=== PATIENT | male | born 1945 | race Caucasian/White ===

== ENCOUNTER 2018-11-24 19:58 | Inpatient (IN) ==
--- NOTE | 2018-11-25 01:50 | Internal Med History&Physical ---
<Cameron Ho - Last Filed: 11/25/18 01:41> Date of Encounter: 11/25/18 Time of Encounter: 01:42 Internal Medicine - H&P: HPI Chief complaint: Presyncopal episode Admitted From: Hospital to Hospital Transfer History of present illness: Mr. Ram is a 73 year old male with a past medical history of liver/colon cancer status post partial colectomy, on June 152018 quadruple bypass CABG approximately 25 years ago, presenting to the ED from an outside hospital after paracentesis of 3 L of ascitic fluid off the patient's abdomen. After undergoing this procedure the patient was noted to be "staring off into space" and had decreased responsiveness. Patient states that he felt weak during that event with generalized abdominal pain and mild headache however he feels that he has progressed back to his baseline at this time. Patient's home medications include amlodipine, aspirin, atorvastatin, carvedilol, glipizide, isosorbide mononitrate, furosemide, losartan, Procrit, Ranexa ranitidine. Patient not currently on any anticoagulation other than aspirin. At outside facility patient was noted to be hypotensive with a blood pressure of 98/59 bradycardic with a pulse of 51 respiratory 18 with O2 sats 92% on room air, patient's laboratory values showed unremarkable ammonia and lactic acid, CBC showed mildly elevated white count 11.37 comprehensive metabolic panel yielded director bilirubin increased at 3.5, sodium is low at 123, hyperkalemia 5.3, hypocalcemia 7.7, AST/ALT at 91/41 alkaline phosphatase 268 lipase at 1253 PT/INR at 18.4/1.6 respectively. Chest x-ray shows possibly developing airspace abnormality in the right lung base CT scan abdomen and pelvis shows an eschar with large ascitic fluid however there was no other acute pathology identified. Upon my initial evaluation patient was sitting upright in hospital but he was awake alert oriented engaged conversation answering questions appropriately there appeared to be no acute lateralizing signs, the patient was in no acute distress. The patient was noticeably jaundiced with scleral icterus, he is noted to be extremely hard of hearing but is otherwise able to take part in significant review systems and history of present illness questioning. Patient's cardiopulmonary auscultation was unremarkable, his abdomen was distended but was otherwise soft and nontender. His large abdominal dressing to the midline of the patient's abdomen it is clean, wall dry, well dressed I do not see any or erythema or exudate. Peripheral pulses are strong and palpable, there is 3+ pitting edema noted in the patient's left lower extremity with 1+ pitting edema in the right lower extremity which patient states is his baseline. Assessment and plan: Presyncopal episode: Repeat labs to include CBC, BMP, coags, hepatic panel, lipase Patient states he is back to baseline is alert and oriented in no acute distress Replace electrolytes as required DNR status: I spoke with the patient and at bedside who state that they would like to remain full code at this time, however the patient is adamant that he would not approve long-term use of life-sustaining measures. Diabetes mellitus: Low-dose sliding corrective insulin regimen DVT prophylaxis: EPCDs Past Med Surg Social Fam HX - Past Medical History Medical history: cancer, diabetes, GERD, hyperlipidemia, hypertension, liver disease, malignancy Additional medical history: colon CA w/ liver mets, Psychiatric history: no psych history - Past Surgical History Surgical History: cancer surgery Additional surgical history: paracentesis 11/24/18. biopsy to medial abdomen 11/23/18 - Social History Smoking Status: Former smoker Smokeless Tobacco Status: No Alcohol use: none Drug use: none - Family History Father Living Status: Hx Family Cancer: Yes (Lung CA) Internal Medicine - H&P: Meds Aspirin [Lo-Dose Aspirin EC] 81 mg PO DAILY 11/25/18 [History] Atorvastatin Calcium [Lipitor] 80 mg PO HS 11/25/18 [History] Calcium Acetate [Phos-LO] 667 mg PO TIDWM 11/25/18 [History] Carboxymethylcellulose Sodium [Sterile Lubricant] 15 ml OP DAILY PRN 11/25/18 [History] Carvedilol 12.5 mg PO BID 11/25/18 [History] Cholecalciferol (D-3) [Vitamin D] 1,000 units PO DAILY 11/25/18 [History] Epoetin Nilesh [Procrit] 10,000 unit SQ QMWF 11/25/18 [History] Ferrous Sulfate [Iron] 325 mg PO TIDWM 11/25/18 [History] Folic Acid 1 mg PO DAILY 11/25/18 [History] Furosemide [Lasix] 40 mg PO DAILY 11/25/18 [History] GlipiZIDE [Glucotrol] 10 mg PO BIDWM 11/25/18 [History] Isosorbide MONOnitrate (24 HR) [Imdur] 60 mg PO DAILY 11/25/18 [History] Losartan Potassium [Cozaar] 50 mg PO DAILY 11/25/18 [History] Ranitidine HCl [Heartburn Relief] 150 mg PO BID 11/25/18 [History] Ranolazine [Ranexa] 500 mg PO BID 11/25/18 [History] amLODIPine [Norvasc] 5 mg PO DAILY 11/25/18 [History] Allergy/AdvReac Type Severity Reaction Status Date / Time No Known Allergies Allergy Verified 11/25/18 00:47 All Systems PM: A 10-system review of systems was performed and is negative for pertinent findings except as documented above in the HPI. - Constitutional Constitutional: fatigue, malaise, weakness - Cardiovascular Cardiovascular ROS IM: no chest pain - Respiratory Respiratory: no dyspnea - Gastrointestinal Gastrointestinal: no abdominal pain, no nausea, no vomiting - Integumentary Integumentary IM: jaundice - Neurological Neurological ROS: weakness, no confusion, no dizziness, no headache(s), no loss of vision, no memory loss - Constitutional Vitals: Temp Pulse Resp BP Pulse Ox 97.4 F L 53 20 99/53 96 11/24/18 22:58 11/25/18 00:09 11/24/18 22:58 11/24/18 22:58 11/24/18 22:58 General appearance: Present: A&O X 3, pleasant, no acute distress, answers questions appropriately Exam: As per history of present illness - Head Head exam: Present: atraumatic, normal inspection - Eye Eye exam: Present: EOMI, PERRL, scleral icterus. Absent: conjunctival injection, nystagmus - Respiratory Respiratory exam: Present: CTAB - Cardiovascular Cardiovascular exam: Present: RRR, +S1, +S2. Absent: diastolic murmur, gallop, JVD, rubs, +S3, +S4, systolic murmur - GI/Abdominal GI/Abdominal exam: Present: distended, soft, no peritoneal signs. Absent: firm, rigid, tenderness - Extremities Exam Extremities exam: Present: pedal edema, warm, radial pulses palpable and symmetrical. Absent: tenderness - Time Spent With Patient Total time spent is greater than 50% in coordination of care (as documented) at patient's floor/unit and/or counseling patient: <Chuck Tran - Last Filed: 11/25/18 08:13> Date of Encounter: 11/25/18 Internal Medicine - H&P: HPI History of present illness: Mr. Ram is a 73 year old male All Systems PM: A 10-system review of systems was performed and is negative for pertinent findings except as documented above in the HPI. - Constitutional Vitals: Temp Pulse Resp BP Pulse Ox 97.6 F 53 16 93/52 95 11/25/18 03:37 11/25/18 03:37 11/25/18 04:01 11/25/18 03:37 11/25/18 04:01 Internal Med - H&P Results - Labs CBC & Chem 7: 11/25/18 02:44 11/25/18 02:44 Labs: Short CBC 11/25/18 Range/Units 02:44 WBC 10.1 (4.3-11.1) K/mcL Hgb 8.3 L (12.9-16.9) g/dL Hct 24.6 L (37.5-50.1) % Plt Count 179 (140-400) K/mcL Neutrophils # 9.1 H (1.6-8.9) K/mcL BMP 11/25/18 02:44 Sodium 122 L Potassium 5.5 H Chloride 95 L Carbon Dioxide 15 L BUN 82 H Creatinine 7.79 H Glucose 228 H Calcium 6.8 L Cardiac Enzymes 11/25/18 Range/Units 02:44 Troponin I 0.03 (< 0.04) ng/mL Liver Function 11/25/18 Range/Units 02:44 Total Bilirubin 4.1 H (0.3-1.0) mg/dL Direct Bilirubin 2.9 H (0.0-0.2) mg/dL AST 61 H (13-39) Units/L ALT 35 (7-52) Units/L Alkaline Phosphatase 236 H (34-104) Units/L Albumin 2.0 L (3.5-5.7) g/dL - Impressions ITS Impressions Head CT 11/25/18 06:30 IMPRESSION: No acute intracranial abnormality. Mild focal left frontal lobe encephalomalacia. Mild chronic white matter microvascular ischemic disease. D/ / Gaurav Ridley / Gaurav Ridley Interpreting Provider: Gaurav Ridley - Time Spent With Patient Total time spent is greater than 50% in coordination of care (as documented) at patient's floor/unit and/or counseling patient: - Attending Attestation I saw and evaluated the patient. I reviewed the residents note, performed my own physical examination and agree with findings and plan as documented in the residents note. Patient seen and examined on 11/25/18 at 530am. Patient presented from [place], [place] after having paracentesis performed. He has decreased responsiveness but did improve. He was transferred to [place] due to worsening renal funtion, with an elevated creatinine of nearly 8. Patient states he does have a history of CKD stage III. Patient also has elevated potassium of 5.3 at previous hospital and a sodium of 123. On repeat potassium was 5.5, and sodium was 122. Creatinine was 7.79. Will continue to monitor potassium and sodium. Giving 15mg albuterol and calcium gluconate. will hold off on IV fluids despite worsening renal function for now until nephrology can evaluate. Suspect that due to ascites possibly caused renal injury as well. Patient also has bradycardia at baseline, diabetes on insulin. He also has a history of colon cancer with metastasis. Hernandez catheter placed for monitoring I's&O's. Lower extremity edema at baseline. - General appearance: Present: cooperative, A&O X 3, pleasant, no acute distress, answers questions appropriately Exam: - Head Head exam: Present: normal inspection - Eye Eye exam: Present: EOMI, normal appearance - Respiratory Respiratory exam: Present: CTAB. Absent: rales, respiratory distress, rhonchi, wheezes - Cardiovascular Cardiovascular exam: Present: RRR. Absent: diastolic murmur, systolic murmur - GI/Abdominal GI/Abdominal exam: Present: normal bowel sounds, soft. Distended. Wound dressings applied, clean and dry. - Extremities Exam Extremities exam: Present: warm, radial pulses palpable and symmetrical. Pedal edema left worse than right. Absent: calf tenderness - Neurological Exam Neurological exam: Present: no focal deficits, strengths equal and symetr throughout. Absent: motor sensory deficit, facial droop, speech deficit - Skin Skin exam: Present: dry, normal color, warm
[2018-11-25] MEDS ORDERED: Dextrose Gel 15 GM/37.5 ML TUBE PO PRN ×2 (02:29)
[2018-11-25] MEDS ORDERED: *HR* Dextrose 50 % in Water (Syg) 50 ML SYRINGE IVP PRN (02:29)
[2018-11-25] MEDS ORDERED: D5% in Water 1,000 ML IVC PRN (02:29)
[2018-11-25 03:10] LABS: Eosinophils % 0.2 %; Hematocrit 24.6 % (37.5-50.1); Hemoglobin 8.3 g/dL (12.9-16.9); Immature Granulocytes % 0.7 % (0-4); Lymphocytes # 0.2 K/mcL (0.6-4.6); Lymphocytes % 1.8 %; Mean Corpuscular HGB Conc 33.7 g/dL (31.6-35.5); Mean Corpuscular Hemoglobin 27.9 pg (28.0-33.3); Mean Corpuscular Volume 82.6 fL (83.0-100.0); Mean Platelet Volume 12.3 fL (9.4-12.4); Monocytes # 0.8 K/mcL (0.0-1.3); Monocytes % 7.6 %; Neutrophils # 9.1 K/mcL (1.6-8.9); Platelet Count 179 K/mcL (140-400); Red Blood Count 2.98 M/mcL (4.19-5.50); Red Cell Distribution Width 21.8 % (11.5-14.5); Segmented Neutrophils % 89.7 %; White Blood Count 10.1 K/mcL (4.3-11.1)
[2018-11-25 03:36] LABS: Albumin/Globulin Ratio 0.6 (1.1-2.2); Bilirubin,Direct 2.9 mg/dL (0.0-0.2); Bilirubin,Indirect 1.2 mg/dL (0.0-1.2); Bilirubin,Total 4.1 mg/dL (0.3-1.0); Calcium 6.8 mg/dL (8.6-10.3); Globulin 3.6 g/dL (2.4-3.5); Potassium 5.5 mEq/L (3.5-5.1); Total Protein 5.6 g/dL (6.4-8.9)
[2018-11-25 03:38] LABS: Anisocytosis 2+ (Not Present); Hypochromasia Present (Not Present); Platelet Estimate Normal (Normal)
[2018-11-25] MEDS ORDERED: Albuterol 2.5 MG/3 ML NEBULIZER IH ONE (03:39)
[2018-11-25] MEDS ORDERED: Calcium Gluconate 2,000 MG in 0.9 % Sodium Chloride 100 ML IVPB ONE (03:40)
[2018-11-25 03:50] LABS: INR 1.4; Prothrombin Time 15.9 Seconds (9.4-12.1)
[2018-11-25 03:53] LABS: Activated Partial Thrombo Time 35.1 Seconds (26.0-36.0)
[2018-11-25 04:32] LABS: Troponin I 0.03 ng/mL (< 0.04)
[2018-11-25 04:34] LABS: Magnesium 2.6 mg/dL (1.6-2.6); Phosphorous 6.8 mg/dL (2.7-4.5)
[2018-11-25] MEDS: Insulin LISPRO 300 UNITS/3 ML VIAL SQ SCH ×3 (05:21→18:32)
[2018-11-25] MEDS: Azithromycin 500 MG in 0.9 % Sodium Chloride 250 ML IVPB SCH (08:37)
[2018-11-25] MEDS: cefTRIAXone 1,000 MG in Water for inj. (sterile) 10 ML IVP SCH (08:37)
[2018-11-25 09:27] LABS: Calcium 7.1 mg/dL (8.6-10.3); Potassium 5.7 mEq/L (3.5-5.1)
[2018-11-25] MEDS ORDERED: 0.9 % Sodium Chloride 1,000 ML IVC SCH (10:00)
[2018-11-25] MEDS ORDERED: 0.9 % Sodium Chloride 1,000 ML ONE (10:26)
[2018-11-25] MEDS: Albumin 25% 25gram/100mL 25 GM/100 ML IV.SOLN IVC SCH ×2 (11:13→13:00)
--- NOTE | 2018-11-25 14:23 | Nephrology Consult Note ---
<Damaso Gilbert - Last Filed: 11/25/18 17:46> Date of Encounter: 11/25/18 Time of Encounter: 10:50 (guessed) Assessment and Plan (1) CKD (chronic kidney disease) Status: Acute Qualifiers: Qualified Code(s): N18.9 - Chronic kidney disease, unspecified (2) LINH (acute kidney injury) Status: Acute (3) Hyponatremia Status: Acute (4) Hyperkalemia Status: Acute (5) Metabolic acidosis Status: Acute (6) Hyperphosphatemia Status: Acute (7) Altered mental status Status: Acute Qualifiers: Qualified Code(s): R41.82 - Altered mental status, unspecified History of Present Illness - History of Present Illness Some elements from chart review: Mr. Kurt Ram is a 73-year-old male who presented to the [facility] ED on 11/25 from a hospital in [place] after altered mental status was noted by the following 3 L paracentesis of ascitic fluid. PMH: Colon cancer status post colectomy on 06/15/2018 complicated by reported infection toward the end of that month, coronary artery bypass grafts 4 when he was 49, heart failure with preserved ejection fraction echo 01/13/18 with LVEF 55-60%, suspicious lesions of liver, CKD Outside facility Initial vitals significant for: Blood pressure 98/59. Heart rate 51. Initial labs significant for: Sodium low at 123. Potassium 5.3. [facility] Initial vitals significant for: Heart rate 53 within the first several hours. Respiratory rate 20. Blood pressure 99/53. Nasal cannula use Initial labs significant for: Creatinine 7.79. BUN 82. Sodium 122. Potassium 5.5. Serum carbon dioxide 16. Estimated GFR 7. CT head 11/25 read as no acute intracranial abnormality, mild chronic white matter microvascular ischemic disease, mild focal left frontal lobe encephalomalacia. Nephrology was consulted for LINH Interview with and patient: Unknown baseline creatinine. Reports phonetic name of anodic treater as Dr. Fabienne dickson" from [place]. Has followed him for several years. Possible cause of CKD diabetes and metformin. No dialysis, transplants, bladder surgeries. Denies Advil or ibuprofen use or any significant pain medication. No significant licorice intake. reports decreased oral intake for 2 days prior to paracentesis secondary to patient feeling bloated. felt that patient was dehydrated before the procedure and even worse afterwards. Past Med Surg Social Fam HX - Past Medical History Medical history: cancer, diabetes, GERD, hyperlipidemia, hypertension, liver disease, malignancy Additional medical history: colon CA w/ liver mets, Psychiatric history: no psych history - Past Surgical History Surgical History: cancer surgery Additional surgical history: paracentesis 11/24/18. biopsy to medial abdomen - Social History Smoking Status: Former smoker Smokeless Tobacco Status: No Alcohol use: none Drug use: none - Family History Father Living Status: Hx Family Cancer: Yes (Lung CA) Medications and Allergies Aspirin [Lo-Dose Aspirin EC] 81 mg PO DAILY 11/25/18 [History] Atorvastatin Calcium [Lipitor] 80 mg PO HS 11/25/18 [History] Calcium Acetate [Phos-LO] 667 mg PO TIDWM 11/25/18 [History] Carboxymethylcellulose Sodium [Sterile Lubricant] 15 ml OP DAILY PRN 11/25/18 [History] Carvedilol 12.5 mg PO BID 11/25/18 [History] Cholecalciferol (D-3) [Vitamin D] 1,000 units PO DAILY 11/25/18 [History] Epoetin Nilesh [Procrit] 10,000 unit SQ QMWF 11/25/18 [History] Ferrous Sulfate [Iron] 325 mg PO TIDWM 11/25/18 [History] Folic Acid 1 mg PO DAILY 11/25/18 [History] Furosemide [Lasix] 40 mg PO DAILY 11/25/18 [History] Isosorbide MONOnitrate (24 HR) [Imdur] 90 mg PO DAILY 11/25/18 [History] Losartan Potassium 25 mg PO DAILY 11/25/18 [History] Ranitidine HCl [Heartburn Relief] 150 mg PO BID 11/25/18 [History] Ranolazine [Ranexa] 500 mg PO BID 11/25/18 [History] amLODIPine [Norvasc] 5 mg PO DAILY 11/25/18 [History] glipiZIDE [Glipizide] 20 mg PO BID 11/25/18 [History] Allergy/AdvReac Type Severity Reaction Status Date / Time No Known Allergies Allergy Verified 11/25/18 09:57 Review of Systems All Systems review (narrative): From Denies: Diarrhea, hematochezia, hematuria *some information auto-populated into this note* Exam - Vital Signs Vital signs: Initial Vital Signs Temp Pulse Resp BP Pulse Ox 97.4 F L 61 20 99/53 96 11/24/18 22:58 11/24/18 22:58 11/24/18 22:58 11/24/18 22:58 11/24/18 22:58 Vital Signs - Last 8 Hours Temp Pulse Resp BP Pulse Ox 11/25/18 11:37 97.6 F 53 18 97/56 97 11/25/18 08:37 54 11/25/18 08:04 97.5 F L 54 18 102/53 95 Intake and Output 11/24/18 11/25/18 11/25/18 23:59 07:59 15:59 Intake Total 460 / 460 Output Total 25 / 25 Balance -25 / -25 460 / 460 Intake: IV Fluids 100 / 100 Flexbumin 25 gm In 100 ml @ 60 100 / 100 mls/hr IVC .[id number] [facility] Rx#: [id number] Oral 360 / 360 Output: Catheter Other: Meal NPO Percent of Meal Consumed 0% Weight 104.1 kg Blood Glucose* 183 Additional exam: objective PE Gen.: Elderly male. Reclining in bed Skin: Turgor exam not reliable. Eyes: Moist sclera Cardiac: Only one heart sound heard. Likely bradycardic Respiratory: Dry basilar crackles. GI: Distended appearance. Bandaged over midline and left quadrant. : Dark appearance of urine in Hernandez tube Extremities: Capillary refill less than 2 seconds bilateral upper extremities. Pitting edema bilaterally that seem to be or so dependent on the left than on the right. to around proximal tibia on the right. Neuro: Alert and oriented to person and place only. Thought the year was "02" and could not answer what month it is. Babinski complicated by ticklishness A/P #LINH Presumed Records from [facility] and his anodic treater pending. Consider secondary to renal hypoperfusion -U/A pending -urine urea pending -urine creatinine pending -urine Na pending -urine eosinophils pending -CPK pending -uric acid pending -continue current 0.9% sodium chloride -continue albumin -retroperitoneal U/S pending #CKD Unknown baseline. Records pending -Avoid nephrotoxic medication -Renal diet -Strict I's and O's -Daily weights #hyponatremia serum calculated osmolality WNL suggesting other solute causing transcellular shift of free water. -Corrected for glucose is 125 -Serum osmolality pending -continue 0.9% sodium chloride #Hyperkalemia Consider secondary to acidosis as well as suspected LINH Initial readings 5.5> 5.7 -Calcium gluconate in the setting of sinus bradycardia and CKD #High anion gap metabolic acidosis Consider secondary to LINH gap 13 as of 11/25 -plan to continue to monitor and resolve LINH #Hyperphosphatemia consider secondary to LINH -monitor pending clinical course #altered mental status -Per primary Results - Lab Results 11/25/18 02:44 11/25/18 08:39 Most recent lab results 11/25/18 11/25/18 02:44 08:39 Calcium 6.8 L 7.1 L Phosphorus 6.8 H Magnesium 2.6 Consult Discharge Plan - Plan [facility]Primary Care Provider[facility] - <Donell Enrique - Last Filed: 12/06/18 22:55> Date of Encounter: 11/25/18 Exam - Vital Signs Vital signs: Initial Vital Signs Temp Pulse Resp BP Pulse Ox 97.4 F L 61 20 99/53 96 11/24/18 22:58 11/24/18 22:58 11/24/18 22:58 11/24/18 22:58 11/24/18 22:58 Results - Lab Results 11/26/18 04:29 11/26/18 04:29 - Attending Attestation I examined this patient and my medical decision-making was reviewed with the Resident Physician. I agree with the documented findings, disposition and treatment plan as described except to the extent set forth below. In brief; 73 y o male with PMH of colon cancer s/p colectomy in june, now with mets to the liver requiring paracentesis earlier today at a different hospital and developing hypotension with transfer to [place]. Renal consulted for elevated SCr at 7.79, baseline unclear but does have a history of CKD, follows with Dr Holbrook. Potassium noted at 5.5. On exam: chronic ill appearing, fatigued, dryMM, lungs with decreased BS bases, Heart S1S2, Abd softly distended and mildly tender and no LE edema and Neuro AAOx3. LINH in the setting of metatastic colon cancer. Agree witg IVF for odilia. No acute inidcation for [employer] today but discussed goals of care with family who plan to discuss amongst themselves later. Will initiate LINH workup in the meantime and obtain records showing baseline from outside physicians.
--- NOTE | 2018-11-25 15:57 | Oncology Inp Consult Note ---
<Tip Kwok S - Last Filed: 11/25/18 20:49> Date of Encounter: 11/25/18 - Data of Consult Requesting Physician: Brent Patel MD Primary Care Provider: PCP [facility] Medications and Allergies Aspirin [Lo-Dose Aspirin EC] 81 mg PO DAILY 11/25/18 [History] Atorvastatin Calcium [Lipitor] 80 mg PO HS 11/25/18 [History] Calcium Acetate [Phos-LO] 667 mg PO TIDWM 11/25/18 [History] Carboxymethylcellulose Sodium [Sterile Lubricant] 15 ml OP DAILY PRN 11/25/18 [History] Carvedilol 12.5 mg PO BID 11/25/18 [History] Cholecalciferol (D-3) [Vitamin D] 1,000 units PO DAILY 11/25/18 [History] Epoetin Nilesh [Procrit] 10,000 unit SQ QMWF 11/25/18 [History] Ferrous Sulfate [Iron] 325 mg PO TIDWM 11/25/18 [History] Folic Acid 1 mg PO DAILY 11/25/18 [History] Furosemide [Lasix] 40 mg PO DAILY 11/25/18 [History] Isosorbide MONOnitrate (24 HR) [Imdur] 90 mg PO DAILY 11/25/18 [History] Losartan Potassium 25 mg PO DAILY 11/25/18 [History] Ranitidine HCl [Heartburn Relief] 150 mg PO BID 11/25/18 [History] Ranolazine [Ranexa] 500 mg PO BID 11/25/18 [History] amLODIPine [Norvasc] 5 mg PO DAILY 11/25/18 [History] glipiZIDE [Glipizide] 20 mg PO BID 11/25/18 [History] Allergy/AdvReac Type Severity Reaction Status Date / Time No Known Allergies Allergy Verified 11/25/18 09:57 Consult Discharge Plan - Plan [facility]errals: [facility] [Primary Care Provider] - Inpatient Charges Provider: Dr. Collins Kwok Consult - Inpatient Medicare Only: [id number] - Attending Attestation I examined this patient and my medical decision-making was reviewed with the Advanced Practice Nurse. I agree with the documented findings, disposition and treatment plan as described except to the extent set forth below. Mr. Ram has a somewhat convoluted recent oncologic history. He was found to have colon cancer in 06/2018 and is sp resection. Chemotherapy was recommended against secondary to comorbidities. He has been managed by Dr. Kate. He has now developed worsening renal function and HD has been discussed. Imaging has confirmed metastatic colon cancer involving the liver. He has evidence of liver dysfunction, but my personal review, this does not appear related to liver tumor burden. I cannot ascertain obstruction involving left liver. His PS is poor with ECOG 3 at current, he has liver dysfunction, ESRD in need of HD and severe CHF. This was discussed with the patient and his . It is highly unlikely he will be able to obtain the strength and ability to tolerate chemotherapy in light of the above; chemotherapy will be difficult to administer and will likely negatively impact his QoL. He wants to be comfortable and does not want to suffer. After this discussion, he has elected against HD and further treatment of his cancer. I think this is best as well. We discussed and dying, expectations moving forward and answered questions. We have consulted palliative care to help with this transition. <Matthew Teixeira Jr - Last Filed: 11/26/18 09:03> Date of Encounter: 11/26/18 Time of Encounter: 15:44 Assessment and Plan (1) Metastatic colon cancer to liver Status: Acute Assessment and plan: This is a very pleasant 73 year old male with metastatic colon cancer. He was diagnosed after April 2018 colonoscopy for ascending colon mass. On 06/15/18, he had partial colectomy with Dr Josué Boucher at [facility]. His medical oncologist that travels from [facility] in [place] to [place] is Dr Brian Kate He has known history of CKD III, sees his professional development instructor, Dr. Osman Holbrook at [facility] in [place], [place]. Due to his worsening chronic kidney disease, his opinion was not to take chemotherapy and risk of further kidney damage. Patient also had a compromised ejection fraction and heart function, and his dress designer also recommended against chemotherapy. Patient had a paracentesis and biopsy on November 16 of a nodule was abdominal wall near his incision. It was thought to be metastatic colon cancer. Patient again had a paracentesis at [facility] in [place] yesterday. At that time they got more than 3 L again off his abdomen. He then went into a shock like state and altered mental status, was transferred our facility for further treatment and evaluation. MRI abdomen shows ascites and innumerable masses of metastatic lesions in his liver. He had one "nodule" he knew about a few weeks ago when he was offered chemo, but, again kidney and heart function is compromised. Recommnedations: 1. Patient with advanced metastatic colon caner to liver. Due to extent of his disease in liver with ascites, even with optimal conditions and god health, chemo could give him up to 1-2 years survival. 2. Patient has would most likely need dialysis, and with him already weak, he would have to wait 8-12 weeks to start chemo based on renal and heart function. In addition he is in liver failure. Any chemo agent would be metabolized in liver or kidneys and make him sicker. 3. Patient decided against any dialysis or chemotherapy. They have expressed him to be kept comfortable and go home with hospice care. We had a long discussion about the end of life process. 4. We will consult palliative care for code status change and hospice discussion for discharge (2) CKD (chronic kidney disease) stage 4, GFR 15-29 ml/min Status: Acute (3) Palliative care encounter Status: Acute - Data of Consult Patient: new to practice Consult date: 11/25/18 Requesting Physician: Brent Patel MD Primary Care Provider: [facility]CP [facility] - Consult Narrative Reason for consult: Metastatic colon cancer History of present illness: The patient is a very pleasant 73 year male transferred from [facility] after paracentesis yesterday that resulted in 3 L of fluid removed from the abdomen. The following data is from his , Bella. Records from outside facilities is pending arrival. Patient has a known history of colon cancer. His colon cancer history began in April [address] Chato Bullock at [facility] found a mass in his lower ascending colon during colonoscopy that was malignant. On 06/15/2018 when he had a partial ascending colectomy by Dr. Josué Boucher with the [facility] in [facility]. At that time the patient's said he was curative and was not offered chemo or radiation. His medical oncologist that travels from [facility] in [place] to [place] is Dr Brian Kate A few weeks later, patient had trouble with wound healing of his colectomy due to long-standing diabetes. Patient was seen by wound care in the [place] area to help secondary healing of his abdominal incision. At that time he had further diagnostic testing that showed a possible nodule in his liver and small intestine. He was seen by his professional development instructor, Dr. Osman Holbrook at [facility] in [place], [place]. Due to his worsening chronic kidney disease, his opinion was not to take chemotherapy and risk of further kidney damage. Patient also had a ejection fraction of 30%, and his dress designer also recommended against chemotherapy. Patient had a paracentesis and biopsy on November 16 of a nodule was abdominal wall near his incision. It was thought to be metastatic colon cancer. Patient again had a paracentesis at [facility] in [place] yesterday. At that time they got more than 3 L again off his abdomen. He then went into a shock like state and altered mental status, was transferred our facility for further treatment and evaluation. Past Med Surg Social Fam HX - Past Medical History Medical history: cancer, diabetes, GERD, hyperlipidemia, hypertension, liver disease, malignancy Additional medical history: colon CA w/ liver mets, Psychiatric history: no psych history - Past Surgical History Surgical History: cancer surgery Additional surgical history: paracentesis 11/24/18. biopsy to medial abdomen 11/23/18 - Social History Smoking Status: Former smoker Smokeless Tobacco Status: No Alcohol use: none Drug use: none - Family History Father Living Status: Hx Family Cancer: Yes (Lung CA) Constitutional: Present: fatigue Gastrointestinal: Present: abdominal pain Oncology - Exam - Constitutional General appearance: cooperative, no acute distress - Head Head exam: Present: normal inspection, normocephalic - Eye Eye exam: Present: PERRL, scleral icterus - ENT ENT exam: Present: mucous membranes dry - Neck Neck exam: Present: full ROM - Respiratory Respiratory exam: Present: decreased breath sounds - Cardiovascular Cardiovascular exam: Present: RRR - Extremities Exam Extremities exam: Present: full ROM, joint swelling, pedal edema - Neurological Exam Neurological exam: Present: alert, oriented X3, no focal deficits - Psychiatric Psychiatric exam: Present: normal affect, normal mood - Skin Skin exam: Present: dry, intact Oncology Inpatient Results Labs: Laboratory Last Values WBC 10.1 K/mcL (4.3-11.1) 11/25/18 02:44 RBC 2.98 M/mcL (4.19-5.50) L 11/25/18 02:44 Hgb 8.3 g/dL (12.9-16.9) L 11/25/18 02:44 Hct 24.6 % (37.5-50.1) L 11/25/18 02:44 MCV 82.6 fL (83.0-100.0) L 11/25/18 02:44 MCH 27.9 pg (28.0-33.3) L 11/25/18 02:44 MCHC 33.7 g/dL (31.6-35.5) 11/25/18 02:44 RDW 21.8 % (11.5-14.5) H 11/25/18 02:44 Plt Count 179 K/mcL (140-400) 11/25/18 02:44 MPV 12.3 fL (9.4-12.4) 11/25/18 02:44 Immature Gran % 0.7 % (0-4) 11/25/18 02:44 Seg Neutrophils % 89.7 % 11/25/18 02:44 Lymphocytes % 1.8 % 11/25/18 02:44 Monocytes % 7.6 % 11/25/18 02:44 Eosinophils % 0.2 % 11/25/18 02:44 Basophils % 0.0 % 11/25/18 02:44 Neutrophils # 9.1 K/mcL (1.6-8.9) H 11/25/18 02:44 Lymphocytes # 0.2 K/mcL (0.6-4.6) L 11/25/18 02:44 Monocytes # 0.8 K/mcL (0.0-1.3) 11/25/18 02:44 Eosinophils # 0.0 K/mcL (0.0-0.6) 11/25/18 02:44 Basophils # 0.0 K/mcL (0.0-0.2) 11/25/18 02:44 Platelet Estimate Normal (Normal) 11/25/18 02:44 Hypochromasia Present (Not Present) A 11/25/18 02:44 Anisocytosis 2+ (Not Present) A 11/25/18 02:44 PT 15.9 Seconds (9.4-12.1) H 11/25/18 02:44 INR 1.4 11/25/18 02:44 APTT 35.1 Seconds (26.0-36.0) 11/25/18 02:44 Sodium 124 mEq/L (136-145) L 11/25/18 08:39 Potassium 5.7 mEq/L (3.5-5.1) H 11/25/18 08:39 Chloride 95 mEq/L (98-107) L 11/25/18 08:39 Carbon Dioxide 16 mEq/L (23-29) L 11/25/18 08:39 BUN 85 mg/dL (8-23) H 11/25/18 08:39 Creatinine 8.02 mg/dL (0.70-1.30) H 11/25/18 08:39 Est GFR ( Amer) 8 (> 60) L 11/25/18 08:39 Est GFR (Non-Af Amer) 7 (> 60) L 11/25/18 08:39 BUN/Creatinine Ratio 11 (6-26) 11/25/18 08:39 Glucose 161 mg/dL (70-105) H 11/25/18 08:39 POC Glucose 183 mg/dL (70-99) H 11/25/18 11:40 Calculated Osmolality 287 (280-300) 11/25/18 08:39 Lactic Acid 1.3 mmol/L (0.5-2.2) 11/25/18 02:44 Calcium 7.1 mg/dL (8.6-10.3) L 11/25/18 08:39 Phosphorus 6.8 mg/dL (2.7-4.5) H 11/25/18 02:44 Magnesium 2.6 mg/dL (1.6-2.6) 11/25/18 02:44 Total Bilirubin 4.1 mg/dL (0.3-1.0) H 11/25/18 02:44 Direct Bilirubin 2.9 mg/dL (0.0-0.2) H 11/25/18 02:44 Indirect Bilirubin 1.2 mg/dL (0.0-1.2) 11/25/18 02:44 AST 61 Units/L (13-39) H 11/25/18 02:44 ALT 35 Units/L (7-52) 11/25/18 02:44 Alkaline Phosphatase 236 Units/L (34-104) H 11/25/18 02:44 Ammonia 27 mcmol/L (16-53) 11/25/18 02:44 Troponin I 0.03 ng/mL (< 0.04) 11/25/18 02:44 Serum Total Protein 5.6 g/dL (6.4-8.9) L 11/25/18 02:44 Albumin 2.0 g/dL (3.5-5.7) L 11/25/18 02:44 Globulin 3.6 g/dL (2.4-3.5) H 11/25/18 02:44 Albumin/Globulin Ratio 0.6 (1.1-2.2) L 11/25/18 02:44 Lipase 258 Units/L (11-82) H 11/25/18 02:44
[2018-11-25 17:21] LABS: Uric Acid 11.8 mg/dL (2.3-7.6)
--- NOTE | 2018-11-25 17:21 | Event Note ---
<Brent Patel - Last Filed: 11/25/18 18:03> Date of Encounter: 11/25/18 Time of Encounter: 10:10 Patient lying down in bed. Comfortable. Feels somewhat better compared to yesterday. Does have abdominal distention. Poor urine output reported. No fevers or chills overnight. Does appear to have acute pancreatitis with elevated lipase. Also direct bilirubin is elevated. Obtain MRI of the abdomen. Also obtain gallbladder ultrasound. Nephrology and oncology consults also placed. Follow recommendations. Monitor liver function. Patient does have hyperphosphatemia. We will place him on PhosLo. <Telly Menard - Last Filed: 11/25/18 21:09> Date of Encounter: 11/25/18 Mr. Ram is a 73M who was transferred from [facility] in [place] on 11/24 after an episode of hypotension and hypothermia after paracentesis with removal of 3 L. Patient has history of colon cancer with a partial colectomy performed in June 2018, CKD stage 3, HLD, GERD, and HTN. While at the outside facility the patient was noted to have a blood pressure 98/59 and heart rate of 51. Labs demonstrated increased bilirubin of 3.5, AST 91, ALT 41, alkaline phosphatase 268, lipase 1253, and INR 1.6. Chest x-ray PA outside facility demonstrated possible developing airspace abnormality in the right lung base. CT of abdomen and pelvis at the outside facility demonstrated small bilateral pleural effusion with adjacent compressive atelectasis right greater than left, diffuse heterogeneous appearance of the liver with multiple ill-defined low density masses seen suggestive of malignancy, large ascites, anasarca, mild diffuse soft tissue thickening in the. Umbilical region without discrete abnormal fluid collection, contracted gallbladder with probable cholelithiasis and mild gallbladder wall thickening, as well as nonobstructive left renal calculus. Azithromycin and Rocephin were given IV for possible pneumonia and/or bacterial peritonitis. The patient was then transferred to [facility] for a higher level of care. Repeat labs performed on arrival at [facility] demonstrated hyperkalemia at 5.5, elevated creatinine of 7.79. The patient was given calcium gluconate, and albuterol for the hyperkalemia. Nephrology was also consulted given the LINH on CKD. A CT of the head was obtained which showed no acute intracranial abnormality with mild focal left frontal lobe encephalomalacia, and mild chronic white matter microvascular ischemic disease. Pt seen and examined at bedside. Currently resting comfortably in bed. Reports his abdomen continues to feel distended, but has no new or acute complaints. Denies any fever, chills, chest pain, or shortness of breath. Physical Exam: General: well developed male in no acute distress Head: NCAT Eyes: PERRL, EOMI, scleral icterus Neck: supple, trachea midline Lungs: CTAB. Non-labored breathing. No wheezes, rales, or rhonci appreciated Heart: RRR +s1 +S2 No murmurs, clicks, rubs, or gallops Abdomen: soft, distended, non-tender Extremities: warm, radial pulses palpable and symmetrical. Lower extremity edema is present. Neuro: A&Ox3. No focal deficits. No speech difficulty or abnormality. Skin: warm, dry, intact. jaundiced A/P: 1. Metastatic Colon Cancer to Liver - Known colon cancer and is s/p partial colectomy from 06/26 at outside facility - CT abdomen/pelvis from outside facility demonstrated likely metastases to liver - Consult heme/onc for further assistance in evaluation, treatment options, and overall prognosis 2. Elevated Bilirubin - Noted from outside facility labs - Continues to be elevated at 4.1 at our facility - Also elevated direct bilirubin at 2.9 - Also elevated Alk Phos at 236 - Possible cholelithiasis noted with gallbladder wall thickening on CT abdomen/pelvis from outside facility - Will obtain RUQ ultrasound - Will also obtain MR abdomen to better visualize ducts and possible obstruction 3. LINH on CKD - Likely 2/2 hypoperfusion - suspect hepatorenal syndrome - Nephrology consulted - appreciate recommendations 4. Hyperkalemia - Received albuterol, calcium gluconate, and Insulin upon arrival to [facility] - Continues to be elevated, and has worsened this AM - Await nephrology recommendations 5. Altered Mental Status - Resolved - Likely 2/2 hypotension and hypothermia as a reaction from paracentesis 6. Hypotension - Reported to have BP 98/59 after paracentesis at outside facility - Continues to be borderline hypotensive at 102/53 this AM, but is currently asymptomatic - Continue to monitor closely 7. CAD - resume home meds 8. CHF - Echo from 01/13/18 at [facility] showed LVEF 55-60%, mild concentric LV hypertrophy, mild TR, mild SD - Repeat echo ordered by night team - LVEF 50-55%, mildly dilated left ventricle, moderate left ventricular diastolic dysfunction, mild mitral regurgitation, and mild tricuspid regurgitation. - resume home meds Update from 19:45 Discussed overall goals of care with pt and his at bedside. Pt ultimately wishes to go home. They wish to wait to speak with palliative care tomorrow. Did discuss CODE STATUS. Pt reports he is ready "to go to my real home". States he does not wish to pursue hemodialysis, but is willing to take medication for his hyperkalemia. Does not want CPR or intubation. State DNR form filled out with pt and his at bedside. Order changed in EMR to DNR-CCA-DNI per patient wishes.
[2018-11-25 18:03] LABS: Hepatitis B Surface Antigen Nonreactive (Nonreactive)
[2018-11-25 18:32] LABS: Hepatitis C Virus Antibody Nonreactive (Nonreactive)
[2018-11-25 18:33] LABS: Hepatitis B Core IgM Nonreactive (Nonreactive)
[2018-11-25 18:34] LABS: Hepatitis A Antibody IgM Nonreactive (Nonreactive)
[2018-11-26] MEDS: Insulin LISPRO 300 UNITS/3 ML VIAL SQ SCH ×3 (01:00→12:23)
[2018-11-26 05:16] LABS: Hemoglobin 8.4 g/dL (12.9-16.9)
[2018-11-26 05:18] LABS: Hematocrit 24.6 % (37.5-50.1); Immature Platelets 10.1 % (1.1-6.1); Mean Corpuscular HGB Conc 34.1 g/dL (31.6-35.5); Mean Corpuscular Hemoglobin 27.9 pg (28.0-33.3); Mean Corpuscular Volume 81.7 fL (83.0-100.0); Platelet Count 140 K/mcL (140-400); Red Blood Count 3.01 M/mcL (4.19-5.50); Red Cell Distribution Width 21.7 % (11.5-14.5); White Blood Count 10.1 K/mcL (4.3-11.1)
[2018-11-26 05:31] LABS: Albumin 2.3 g/dL (3.5-5.7); Albumin/Globulin Ratio 0.7 (1.1-2.2); Bilirubin,Direct 3.5 mg/dL (0.0-0.2); Bilirubin,Indirect 1.1 mg/dL (0.0-1.2); Bilirubin,Total 4.6 mg/dL (0.3-1.0); Globulin 3.3 g/dL (2.4-3.5); Total Protein 5.6 g/dL (6.4-8.9)
[2018-11-26 05:58] LABS: Potassium 5.8 mEq/L (3.5-5.1)
[2018-11-26 07:28] VITALS: BP 104/61
[2018-11-26] MEDS ORDERED: Famotidine 20 MG TABLET PO SCH (07:30)
--- NOTE | 2018-11-26 07:44 | Nephrology Progress Note ---
Date of Encounter: 11/26/18 Time of Encounter: 06:30 (guessed) - Assessment and Plan (1) CKD (chronic kidney disease) Status: Acute Qualifiers: Qualified Code(s): N18.9 - Chronic kidney disease, unspecified (2) LINH (acute kidney injury) Status: Acute (3) Hyponatremia Status: Acute (4) Hyperkalemia Status: Acute (5) Metabolic acidosis Status: Acute (6) Hyperphosphatemia Status: Acute Subjective Interval history: Subjective Patient seen and examined at bedside. Feels tired. Feels the same as ye sterday. Denies any new symptoms Objective PE Gen.: Elderly male. Reclining in bed Skin: Turgor return of skin around 2 seconds Cardiac: S1, S2. Mostly regular rhythm however some ectopic beats. No obvious murmurs gallops rubs heard Respiratory: Crackles of the lung bases. Extremities: Pitting edema bilateral lower extremities to around mid tibia. Capillary refill less than 2 seconds upper extremities bilaterally Neuro: Somnolent Psych: Answers questions coherently A/P #LINH Consider hepatorenal. Presumed Records from [facility] and his gate attendant pending. Consider secondary to renal hypoperfusion CPK WNL 11/25 Retroperitoneal ultrasound read as showing no right sided hydronephrosis however left kidney not visualized. -patient has transitioned to palliative care only with hospice. Nephrology will sign off. Thank you for the consult #CKD Unknown baseline. Records pending -palliative care #hyponatremia serum calculated osmolality WNL suggesting other solute causing transcellular shift of free water. Serum osmolality WNL 18 #Hyperkalemia Consider secondary to acidosis as well as suspected LINH Initial readings 5.5> 5.7 #High anion gap metabolic acidosis Consider secondary to LINH #Hyperphosphatemia consider secondary to LINH Objective - Vital Signs Vital signs: Vital Signs Temp Pulse Resp BP Pulse Ox 11/26/18 03:59 98.5 F 54 18 98/52 97 11/26/18 00:50 62 11/26/18 00:20 98.2 F 58 20 99/52 98 11/25/18 20:08 97.6 F 56 19 107/62 98 11/25/18 19:31 56 11/25/18 16:30 97.6 F 57 18 108/61 11/25/18 11:37 97.6 F 53 18 97/56 97 11/25/18 08:37 54 11/25/18 08:04 97.5 F L 54 18 102/53 95 Intake and Output 11/25/18 11/25/18 11/26/18 15:59 23:59 07:59 Intake Total 460 / 460 1000 / 1000 Output Total Balance 460 / 460 980 / 980 Intake: IV Fluids 100 / 100 1000 / 1000 0.9 % Sodium Chloride 1,000 ML 1000 / 1000 @ 75 mls/hr IVC .[id number] [facility] Rx #:[id number] Flexbumin 25 gm In 100 ml @ 60 100 / 100 mls/hr IVC .[id number] [facility] Rx#: [id number] Oral 360 / 360 Output: Catheter Other: Meal NPO Percent of Meal Consumed 0% Weight 105.1 kg Blood Glucose* 183 162 64 Patient Weight 11/26/18 23:59 Weight 105.1 kg - Lab 11/26/18 04:29 11/26/18 04:29 Most recent lab results 11/26/18 11/26/18 04:29 04:29 Calcium 7.0 L Phosphorus 7.2 H Consult Discharge Plan - Plan Referrals: [facility],PCP [Primary Care Provider] -
--- NOTE | 2018-11-26 07:55 | Internal Med Progress Note ---
Hospitalist Progress Note - Encounter Date of Encounter: 11/26/18 - Exam Vitals: Temp Pulse Resp BP Pulse Ox 98.3 F 61 18 104/61 96 11/26/18 07:26 11/26/18 07:26 11/26/18 07:26 11/26/18 07:26 11/26/18 07:26 - Time Spent with Patient Total time spent is greater than 50% in coordination of care (as documented) at patient's floor/unit and/or counseling patient: Internal Medicine: Result - Labs CBC & Chem 7: 11/26/18 04:29 11/26/18 04:29 Labs: Short CBC 11/26/18 Range/Units 04:29 WBC 10.1 (4.3-11.1) K/mcL Hgb 8.4 L (12.9-16.9) g/dL Hct 24.6 L (37.5-50.1) % Plt Count 140 (140-400) K/mcL BMP 11/25/18 11/26/18 08:39 04:29 Sodium 124 L 124 L Potassium 5.7 H 5.8 H Chloride 95 L 95 L Carbon Dioxide 16 L 15 L BUN 85 H 83 H Creatinine 8.02 H 8.83 H Glucose 161 H 58 L Calcium 7.1 L 7.0 L Liver Function 11/26/18 Range/Units 04:29 Total Bilirubin 4.6 H (0.3-1.0) mg/dL Direct Bilirubin 3.5 H (0.0-0.2) mg/dL AST 54 H (13-39) Units/L ALT 31 (7-52) Units/L Alkaline Phosphatase 250 H (34-104) Units/L Albumin 2.3 L (3.5-5.7) g/dL - ABG Interpretation ABG results: PT/INR, D-dimer PT 15.9 Seconds (9.4-12.1) H 11/25/18 02:44 - Impressions Impressions Echocardiogram 11/25/18 07:23 Impressions: LVEF 50-55%. Mildly dilated left ventricle. Moderate left ventricular diastolic dysfunction. Normal right ventricular structure and function. Moderately dilated left atrium. Mild mitral regurgitation.Mild tricuspid regurgitation. No evidence of pulmonary hypertension. Left Ventricular Wall Motion: Rest Echo Findings The apex, apical anterior and mid anterior kelley were not visualized. All other wall segments showed normal motion. Findings: Study Quality * Technically sub-optimal due to poor echocardiographic windows. ECG Findings * Sinus rhythm with BBB. Left Ventricle * LVEF 50-55%. * Mildly dilated left ventricle. * Mild concentric left ventricular hypertrophy. * Mild left ventricular systolic dysfunction. * Moderate left ventricular diastolic dysfunction. * Definity echo contrast was not used. * Atypical septal motion consistent with bundle branch block. Right Ventricle * Normal right ventricular structure and function. Left Atrium * Moderately dilated left atrium. Right Atrium * Mildly dilated right atrium. Interatrial Septum * Interatrial septum not well evaluated. Aortic Valve * Trileaflet aortic valve. * No aortic regurgitation. * No aortic stenosis. * Normal aortic valve structure. Mitral Valve * Mild mitral regurgitation.Mild tricuspid regurgitation. * No mitral stenosis. * Normal mitral valve structure. Tricuspid Valve * Mild tricuspid regurgitation. * No evidence of pulmonary hypertension. * No tricuspid stenosis. * Normal tricuspid valve structure. Pulmonic Valve * Trace pulmonic regurgitation. Aorta * Normally sized aortic root. Pericardium * The pericardium appears normal. IVC * Normal IVC dimensions and inspiratory collapse. Pulmonary Artery * Normal visualized portions of the main pulmonary artery. Abdomen MRI 11/25/18 15:13 IMPRESSION: Nonvisualization of the common duct. This precludes the evaluation of common duct stones Multiple metastatic lesions are suspected in the liver, measuring up to 4.7 cm Abdominal ascites, body wall anasarca,, and trace pleural fluid, suggesting fluid overload D/ / Nils Hawkins MD / Nils Hawkins MD Interpreting Provider: Nils Hawkins MD Liver Ultrasound 11/25/18 20:46 IMPRESSION: Ascites. Heterogeneous hepatic echotexture, which can be in keeping with hepatocellular disease. A focal zone of decreased echogenicity within the right hepatic lobe can reflect focal hepatocellular disease though underlying hepatic mass cannot be excluded. Liver protocol CT or MR when patient is able is suggested for further evaluation. Cholelithiasis. Gallbladder wall thickening is seen which can be secondary to ascites. Cholecystitis cannot be excluded in this setting. If there is clinical suspicion of such, HIDA scan could be considered. Dilatation of the common bile duct is also noted. No evidence of right hydronephrosis. Nonvisualization of left kidney. D/ / Chuck Zamarripa MD / Chuck Zamarripa MD Interpreting Provider: Chuck Zamarripa MD Retroperitoneum Ultrasound 11/25/18 20:46 IMPRESSION: Ascites. Heterogeneous hepatic echotexture, which can be in keeping with hepatocellular disease. A focal zone of decreased echogenicity within the right hepatic lobe can reflect focal hepatocellular disease though underlying hepatic mass cannot be excluded. Liver protocol CT or MR when patient is able is suggested for further evaluation. Cholelithiasis. Gallbladder wall thickening is seen which can be secondary to ascites. Cholecystitis cannot be excluded in this setting. If there is clinical suspicion of such, HIDA scan could be considered. Dilatation of the common bile duct is also noted. No evidence of right hydronephrosis. Nonvisualization of left kidney. D/ / Chuck Zamarripa MD / Chuck Zamarripa MD Interpreting Provider: Chuck Zamarripa MD Consult Discharge Plan - Plan [facility]errals: [facility] [Primary Care Provider] -
[2018-11-26] MEDS: cefTRIAXone 1,000 MG in Water for inj. (sterile) 10 ML IVP SCH (08:21)
[2018-11-26] MEDS: Azithromycin 500 MG in 0.9 % Sodium Chloride 250 ML IVPB SCH (08:21)
[2018-11-26] MEDS ORDERED: Ranolazine 500 MG TAB.ER.12H PO SCH (09:00)
[2018-11-26] MEDS ORDERED: Aspirin Enteric Coated 81 MG Tablet PO SCH (09:00)
--- NOTE | 2018-11-26 10:45 | Discharge Summary ---
<Brent Patel - Last Filed: 11/26/18 12:23> Orders not resulted at time of discharge: Pending orders 11/25/18 01:55 Urinalysis Reflex Cult & Micro [URIN] Stat 11/25/18 02:51 Culture,Blood [BC] Stat 11/25/18 15:10 Urinalysis reflex Microscopic [URIN] Routine 11/25/18 16:12 Eosinophil,Urine [URIN] Routine Date of Encounter: 11/26/18 Time of Encounter: 12:23 Hospital course: Mr. Ram is a 73 year old male - Time Spent with Patient Total time spent providing and/or coordinating discharge services: - Discharge Medications Prescriptions: No Action Ranitidine HCl [Heartburn Relief] 150 mg PO BID Isosorbide MONOnitrate (24 HR) [Imdur] 90 mg PO DAILY Furosemide [Lasix] 40 mg PO DAILY Folic Acid 1 mg PO DAILY Ferrous Sulfate [Iron] 325 mg PO TIDWM Cholecalciferol (D-3) [Vitamin D] 1,000 units PO DAILY Carvedilol 12.5 mg PO BID Calcium Acetate [Phos-LO] 667 mg PO TIDWM Atorvastatin Calcium [Lipitor] 80 mg PO HS Aspirin [Lo-Dose Aspirin EC] 81 mg PO DAILY Ranolazine [Ranexa] 500 mg PO BID amLODIPine [Norvasc] 5 mg PO DAILY Epoetin Nilesh [Procrit] 10,000 unit SQ QMWF Carboxymethylcellulose Sodium [Sterile Lubricant] 15 ml OP DAILY PRN PRN Reason: Dry Eyes glipiZIDE [Glipizide] 20 mg PO BID Losartan Potassium 25 mg PO DAILY Home Medications: Aspirin [Lo-Dose Aspirin EC] 81 mg PO DAILY 11/25/18 [History] Atorvastatin Calcium [Lipitor] 80 mg PO HS 11/25/18 [History] Calcium Acetate [Phos-LO] 667 mg PO TIDWM 11/25/18 [History] Carboxymethylcellulose Sodium [Sterile Lubricant] 15 ml OP DAILY PRN 11/25/18 [History] Carvedilol 12.5 mg PO BID 11/25/18 [History] Cholecalciferol (D-3) [Vitamin D] 1,000 units PO DAILY 11/25/18 [History] Epoetin Nilesh [Procrit] 10,000 unit SQ QMWF 11/25/18 [History] Ferrous Sulfate [Iron] 325 mg PO TIDWM 11/25/18 [History] Folic Acid 1 mg PO DAILY 11/25/18 [History] Furosemide [Lasix] 40 mg PO DAILY 11/25/18 [History] Isosorbide MONOnitrate (24 HR) [Imdur] 90 mg PO DAILY 11/25/18 [History] Losartan Potassium 25 mg PO DAILY 11/25/18 [History] Ranitidine HCl [Heartburn Relief] 150 mg PO BID 11/25/18 [History] Ranolazine [Ranexa] 500 mg PO BID 11/25/18 [History] amLODIPine [Norvasc] 5 mg PO DAILY 11/25/18 [History] glipiZIDE [Glipizide] 20 mg PO BID 11/25/18 [History] Allergies/Adverse Reactions: Allergy/AdvReac Type Severity Reaction Status Date / Time No Known Allergies Allergy Verified 11/25/18 09:57 Date of admission: 11/25/18 05:53 Primary care physician: PCP [place] Consults: 11/25/18 03:31 Consult to Nephrology [CONS] Stat Consulting Provider: Kidney Guillermina/ISABELL/DON/DAVEY Reason for Consult: LINH Time Notified: 03:32 Call Completed: No 11/25/18 13:45 Consult to Oncology [CONS] Routine Consulting Provider: Reason for Consult: hx of metastatic colon cancer with partial colectomy. Also had his first paracentesis on 11/24 and subsequently was hypotensive and hypothermic. assistance with prognosis/treatment options would be greatly appreciated! Call Completed: Yes 11/25/18 17:32 Consult to Palliative Care [CONS] Routine Comment: Consulting Provider: Palliative Care Guillermina Reason for Consult: Advanced metastatic colon cacner to liver, treated in [facility]. Needs hospice referral for discharge back home and code status Time Notified: 17:33 Call Completed: Yes - Constitutional Vitals: Temp Pulse Resp BP Pulse Ox 98.3 F 65 18 104/61 96 11/26/18 07:26 11/26/18 07:58 11/26/18 07:26 11/26/18 07:26 11/26/18 07:26 - Patient Status Disposition: Hospice - Medical Facility Condition: Fair - Discharge Instructions [facility] With: [facility] [Primary Care Provider[facility] - - Attending Attestation I saw evaluated and examined this patient and reviewed objective data including labs and my medical decision-making was reviewed with the Resident Physician. I agree with the documented findings, disposition and discharge plan as described except to any changes set forth below. We independently had tohe-lw-yfos contact with the patient. Patient with a history of colon cancer with metastasis lesions to the liver, chronic kidney disease was hospitalized here with episode of hypotension following paracentesis done as outpatient. In the ER, he was noted to have severe worsening of renal function. He is also been having decreased urine output. His bilirubin levels were elevated along with alkaline phosphatase levels suggesting possible obstructive jaundice. His lipase levels were also evaluated. CT of his chest did show possible pneumonia. His renal function has not improved much during his stay here. Oncology has also evaluated him. Patient does not wish to undergo hemodialysis and as his renal function is not improving, he has decided to instead transition to hospice. Patient will be discharged from medical service and admitted to inpatient hospice. Continue comfort measures and supportive care. Time spent on discharge: 8 min <Telly Menard - Last Filed: 11/26/18 16:53> - NOTES TO OUTPATIENT PROVIDER Notes to Outpatient Provider: Mr. Holland was admitted for hypotension and hypothermia following a paracentesis. Ultimately the patient elected for comfort care measures and was transitioned to inpatient hospice. Orders not resulted at time of discharge: Pending orders 11/25/18 01:55 Urinalysis Reflex Cult & Micro [URIN] Stat 11/25/18 02:51 Culture,Blood [BC] Stat 11/25/18 15:10 Urinalysis reflex Microscopic [URIN] Routine 11/25/18 16:12 Eosinophil,Urine [URIN] Routine Date of Encounter: 11/26/18 Time of Encounter: 10:44 - Discharge Diagnosis (1) Metastatic colon cancer to liver Priority: Primary Status: Acute (2) Elevated bilirubin Priority: Secondary Status: Acute (3) Pancreatitis Priority: Secondary Status: Acute Qualifiers: Chronicity: acute Pancreatitis type: unspecified pancreatitis type Acute pancreatitis complication: unspecified Qualified Code(s): K85.90 - Acute pancreatitis without necrosis or infection, unspecified (4) CKD (chronic kidney disease) Priority: Secondary Status: Acute Qualifiers: Qualified Code(s): N18.9 - Chronic kidney disease, unspecified (5) LINH (acute kidney injury) Priority: Secondary Status: Acute (6) Hyponatremia Priority: Secondary Status: Acute (7) Hyperkalemia Priority: Secondary Status: Acute Hospital course: Mr. Ram is a 73M who was transferred from [facility] in [place] on 11/24 after an episode of hypotension and hypothermia after paracentesis with removal of 3 L. Patient has history of colon cancer with a partial colectomy performed in June 2018, CKD stage 3, HLD, GERD, and HTN. While at the outside facility the patient was noted to have a blood pressure 98/59 and heart rate of 51. Labs demonstrated increased bilirubin of 3.5, AST 91, ALT 41, alkaline phosphatase 268, lipase 1253, and INR 1.6. Chest x-ray PA outside facility demonstrated possible developing airspace abnormality in the right lung base. CT of abdomen and pelvis at the outside facility demonstrated small bilateral pleural effusion with adjacent compressive atelectasis right greater than left, diffuse heterogeneous appearance of the liver with multiple ill-defined low density masses seen suggestive of malignancy, large ascites, anasarca, mild diffuse soft tissue thickening in the. Umbilical region without discrete abnormal fluid collection, contracted gallbladder with probable cholelithiasis and mild gallbladder wall thickening, as well as nonobstructive left renal calculus. Azithromycin and Rocephin were given IV for possible pneumonia and/or bacterial peritonitis. The patient was then transferred to [facility] for a higher level of care. Repeat labs performed on arrival at [facility] demonstrated hyperkalemia at 5.5, elevated creatinine of 7.79. The patient was given calcium gluconate, and albuterol for the hyperkalemia. Nephrology was also consulted given the LINH on CKD. A CT of the head was obtained which showed no acute intracranial abnormality with mild focal left frontal lobe encephalomalacia, and mild chronic white matter microvascular ischemic disease. Potassium remained elevated at 5.7. Dose of Kayexalate was subsequently given. Right upper quadrant and retroperitoneal ultrasound demonstrated ascites, heterogeneous hepatic echotexture, of focal zone of decreased echogenicity in the right hepatic lobe, cholelithiasis, gallbladder wall thickening, no evidence of hydronephrosis, and nonvisualization of the left kidney. Abdominal MRI was obtained which showed nonvisualization of the common duct, multiple metastatic lesions suspected in the liver with the largest measuring up to 4.7 cm, and abdominal ascites were once more noted. The hematology and oncology team was consult said, and ultimately initiated goals of care discussion. Patient estimated to at best tab 1-2 years of survival with optimal conditions in good health, however the patient does have extensive liver disease with ascites, as well as LINH on CKD. The nephrology team was consult said, however the patient decided against dialysis. Ultimately the patient elected for comfort care measures. CODE STATUS was transitioned to DNR CCA DNI, and the palliative care team was consult it. On 11/26 the palliative team further discuss goals of care with the patient and his family at bedside. Patient wished to have Hernandez catheter removed, as well as other comfort measures. It was determined at that time as the patient would be admitted to inpatient hospice. Patient discharged from hospitalist service and transitioned per patient and family wishes. Discharge discussed with: patient, family, nurse, executive search consultant - Time Spent with Patient Total time spent providing and/or coordinating discharge services: Date of admission: 11/25/18 05:53 Primary care physician: PCP MT Consults: 11/25/18 03:31 Consult to Nephrology [CONS] Stat Consulting Provider: Kidney Guillermina/ISABELL/DON/DAVEY Reason for Consult: LINH Time Notified: 03:32 Call Completed: No 11/25/18 13:45 Consult to Oncology [CONS] Routine Consulting Provider: Reason for Consult: hx of metastatic colon cancer with partial colectomy. Also had his first paracentesis on 11/24 and subsequently was hypotensive and hypothermic. assistance with prognosis/treatment options would be greatly appreciated! Call Completed: Yes 11/25/18 17:32 Consult to Palliative Care [CONS] Routine Comment: Consulting Provider: Palliative Care Guillermina Reason for Consult: Advanced metastatic colon cacner to liver, treated in [facility]. Needs hospice referral for discharge back home and code status Time Notified: 17:33 Call Completed: Yes - Constitutional Vitals: Temp Pulse Resp BP Pulse Ox 98.3 F 65 18 104/61 96 11/26/18 07:26 11/26/18 07:58 11/26/18 07:26 11/26/18 07:26 11/26/18 07:26 General appearance: Present: A&O X 3, pleasant, no acute distress, answers questions appropriately Exam: General: well developed male in no acute distress Head: NCAT Eyes: PERRL, EOMI, scleral icterus Neck: supple, trachea midline Lungs: CTAB. Non-labored breathing. No wheezes, rales, or rhonci appreciated Heart: RRR +s1 +S2 No murmurs, clicks, rubs, or gallops Abdomen: soft, distended, non-tender Extremities: warm, radial pulses palpable and symmetrical. Lower extremity edema is present. Neuro: A&Ox3. No focal deficits. No speech difficulty or abnormality. Skin: warm, dry, intact. jaundiced - Patient Status Functional capacity at discharge: independent ambulation Overall status at discharge: patient is not back to baseline
[2018-11-26] MEDS ORDERED: Calcium Acetate 667 MG CAPSULE PO SCH (18:04)
== END 2018-11-26 14:42 | disposition hospice, inpatient (51) | DRG 682 ==
LOC: 2NNU → SUATTDRO 11-25 05:53
PROVIDERS: ADMIT Internal Medicine; ATTEND Internal Medicine

== ENCOUNTER 2018-11-26 10:25 | Inpatient (IN) ==
[2018-11-26] MEDS ORDERED: Acetaminophen 650 MG RECTAL SUPP RC PRN (10:39)
[2018-11-26] MEDS ORDERED: Haloperidol Oral Conc 10 MG/5 ML UDC PO PRN (10:39)
[2018-11-26] MEDS ORDERED: Ipratropium/Albuterol Neb 3 ML IH PRN (10:39)
--- NOTE | 2018-11-26 11:22 | Pallative History & Physical ---
Date of Encounter: 11/26/18 Time of Encounter: 09:20 Assessment and Plan (1) Dyspnea Status: Acute Patient with Hx CHF, bilateral 3+ pedal edema. General ascites. S/P 3L removal paracentesis. Patient c/o SOB with verbal discussion. Sats 96% on 2L NC. Plan: CDB Supplemental O2 Add Duonebs Qualifiers: Dyspnea type: other forms of dyspnea Qualified Code(s): R06.09 - Other forms of dyspnea (2) Cancer associated pain Status: Acute Patient with metastatic colon cancer to liver. C/O abdominal pain rating of 4/10. Tenderness to palpation. General ascites. Plan: Add oxycodone PRN (3) Constipation Status: Acute Patient reports no BM x 1 week. Will add laxative and bowel regimen. Qualifiers: Constipation type: unspecified constipation type Qualified Code(s): K59.00 - Constipation, unspecified (4) Palliative care by specialist Status: Acute (5) CKD (chronic kidney disease) stage 4, GFR 15-29 ml/min Status: Acute Patient desires to be kept comfortable. NO HD. Will stop any additional flu ids/antibiotics. (6) Metastatic colon cancer to liver Status: Acute Patient desires Hospice care. Called [facility] for referral. Patient outside of [facility] [place] to visit patient and provide Hospice information and plan for possible home DC tomorrow. Bella agrees to plan. (7) Palliative care encounter Status: Acute Internal Medicine - H&P: HPI Chief complaint: End of life care Admitted From: Intrahospital Transfer Plans for Post Hospital Care: Hospice - Home History of present illness: Patient was found to have colon cancer in 06/2018 and is status post colon resect ion. He has been managed by Dr. Kate. He has developed worsening renal function. He has confirmed metastatic colon cancer now involving the liver. His PS is poor with ECOG 3, c/o constipation, no appetite. He has liver dysfunction, ESRD in need of HD and severe CHF. I conducted a bedside meeting with the patient and his Bella. He wants to be kept comfortable and does not want to suffer. He desires to forgo any further antibiotics, fluid resuscitation, diagnotics, or labs. After further discussion, he desires to transition to inpatient hospice care. He does not desire HD and desires no further treatment of his cancer. We discussed clinical indications of the body shutting down and his elevated renal and K+ levels. I explained that we could transition him home if this is desired. The patient is jaundiced with scleral icterus, he is noted to be extremely hard of hearing but is otherwise able to take part in significant review systems and history of present illness questioning. Case was discussed with Dr. Short, Dr. Patel and Dr. Menard. The patient will be admitted to inpatient hospice for symptom management. Given the patients elevated creatinine and K+ levels and overall declining condition. is imminent. Past Med Surg Social Fam HX - Past Medical History Source: patient, obtained from family Medical history: cancer, diabetes, GERD, hyperlipidemia, hypertension, liver disease, malignancy Additional medical history: colon CA w/ liver mets, Psychiatric history: no psych history - Past Surgical History Surgical History: cancer surgery Additional surgical history: paracentesis 11/24/18. biopsy to medial abdomen 11/23/18 - Social History Smoking Status: Former smoker Smokeless Tobacco Status: No Alcohol use: none Drug use: none Recent Out of Country Travel Within the Last 8 Weeks: No Exposure or Possible Exposure to Illness During Travel: No - Family History Father Living Status: Hx Family Cancer: Yes (Lung CA) Internal Medicine - H&P: Meds Aspirin [Lo-Dose Aspirin EC] 81 mg PO DAILY 11/25/18 [History] Atorvastatin Calcium [Lipitor] 80 mg PO HS 11/25/18 [History] Calcium Acetate [Phos-LO] 667 mg PO TIDWM 11/25/18 [History] Carboxymethylcellulose Sodium [Sterile Lubricant] 15 ml OP DAILY PRN 11/25/18 [History] Carvedilol 12.5 mg PO BID 11/25/18 [History] Cholecalciferol (D-3) [Vitamin D] 1,000 units PO DAILY 11/25/18 [History] Epoetin Nilesh [Procrit] 10,000 unit SQ QMWF 11/25/18 [History] Ferrous Sulfate [Iron] 325 mg PO TIDWM 11/25/18 [History] Folic Acid 1 mg PO DAILY 11/25/18 [History] Furosemide [Lasix] 40 mg PO DAILY 11/25/18 [History] Isosorbide MONOnitrate (24 HR) [Imdur] 90 mg PO DAILY 11/25/18 [History] Losartan Potassium 25 mg PO DAILY 11/25/18 [History] Ranitidine HCl [Heartburn Relief] 150 mg PO BID 11/25/18 [History] Ranolazine [Ranexa] 500 mg PO BID 11/25/18 [History] amLODIPine [Norvasc] 5 mg PO DAILY 11/25/18 [History] glipiZIDE [Glipizide] 20 mg PO BID 11/25/18 [History] Allergy/AdvReac Type Severity Reaction Status Date / Time No Known Allergies Allergy Verified 11/25/18 09:57 Review of systems: C/O abdominal pain/pressure - Constitutional Constitutional ROS PAL: decreased appetite, fatigue - EENT Ears: as per HPI - Cardiovascular Cardiovascular ROS: dyspnea on exertion, edema, pedal edema - Respiratory Respiratory: dyspnea - Gastrointestinal Gastrointestinal: constipation - Genitourinary Genitourinary ROS male: difficulty urinating - Musculoskeletal Musculoskeletal ROS IM: muscle weakness - Integumentary ROS Integumentary: wounds (abdominal dressings) - Neurological Neurological ROS: weakness Palliative Care-Exam - Constitutional General appearance: Present: cooperative, mild distress Exam: Patient with abdominal distention. SOB - Head Head Exam: Present: atraumatic - Eye Eye exam: Present: scleral icterus Pupils: Present: PERRL - ENT ENT exam: Present: mucous membranes moist - Expanded ENT Exam Mouth Exam: Present: moist - Respiratory Respiratory exam: Present: decreased breath sounds - Expanded Respiratory Exam Location: dullness to percussion: Left, Right, Lower - Expanded Cardiovascular Exam Peripheral pulses: 1+: Femoral (L) PM, Femoral (R) PM, Posterior Tibialis (L), Posterior Tibialis (R), 2+: Carotid (L) PM, Carotid (R) PM, Radial (L), Radial (R), Dorsalis Pedis (L) PM, Dorsalis Pedis (R) PM - GI/Abdominal Exam GI/Abdominal exam: Present: diminished bowel sounds additional comments: Abdominal dressings, CDI - Expanded GI/Abdominal Exam GI/Abdominal exam: Present: ascites - Rectal Rectal Exam: Present: deferred - exam: Present: scrotal swelling - Extremities Exam Extremities exam: Present: pedal edema (3+ pitting) - Neurological Exam Neurological exam: Present: alert, oriented X3 - Expanded Neurological Exam Cranial nerves: gag reflex: Normal Coma Scale Eye Opening: Spontaneous Coma Scale Motor Response: Obeys Commands Coma Scale Verbal Response: Oriented Coma Scale Total: 15 - Psychiatric Psychiatric exam: Present: flat affect - Skin Skin exam: Present: pallor, warm Palliative Quality Palliative Quality: Screen for Code Status: Yes, Screen for Goals of Care: No, Screen for Pain: Yes, If Pain Regimen Started, Initiate Bowel Regimen: Yes, Screen for Nausea/Vomitting: Yes Code Status: 11/26/18 10:39 Resuscitation Status: Active [RES] Routine Comment: Resuscitation Status: DNR-Comfort Care
--- NOTE | 2018-11-26 16:49 | Event Note ---
Date of Encounter: 11/26/18 Time of Encounter: 15:30 Patient arrived to palliative care unit. Patient lethargic and clammy. Assessment complete. Bella and daughter at bedside. Provided support as patient now with decreased mental status and no urine output. Actively dying. Family accepting of comfort care. Grandsons to visit this evening. Hospitality cart ordered. Comfort medications as needed. [facility] nurse Yrn Rizvi RN at bedside completing admission.
[2018-11-26] MEDS: Sennosides/Docusate Sodium TABLET PO SCH (20:34)
[2018-11-26 21:44] VITALS: BP 110/57
[2018-11-27] MEDS: *HR* LORazepam Oral Conc 2 MG/ML PO PRN ×2 (04:50→15:04)
[2018-11-27] MEDS: Sennosides/Docusate Sodium TABLET PO SCH (07:43)
[2018-11-27] MEDS ORDERED: Atropine Sulfate 1% 40 DROP/2 ML BOTTLE SL PRN (09:47)
[2018-11-27] MEDS ORDERED: Scopolamine Patch 1.5 MG PATCH.TD72 TD SCH (10:00)
--- NOTE | 2018-11-27 12:39 | Palliative Progress Note ---
Date of Encounter: 11/27/18 Time of Encounter: 09:15 - Assessment and plan (1) Cancer associated pain Current Visit: No Status: Acute Assessment and plan: Continues with Oxycodone SL 5mg - utilized x 4 last 24 hours. MOnitor (2) Dyspnea Current Visit: No Status: Acute Assessment and plan: Continue supportive oxygen PRN. Oxycodone SL PRN Qualifiers: Dyspnea type: other forms of dyspnea Qualified Code(s): R06.09 - Other forms of dyspnea (3) Hospice care Current Visit: Yes Status: Acute Assessment and plan: Patient appears to be actively dying. (4) Metastatic colon cancer to liver Current Visit: No Status: Acute (5) Palliative care encounter Current Visit: No Status: Acute - Time Spent With Patient Total time spent is greater than 50% in coordination of care (as documented) at patient's floor/unit and/or counseling patient: 25 - 35 minutes - Subjective Interval history: Patient unresponsive to verbal/tactile stimuli. at bedside. He appears comfortable. Increasing upper airway secretions. - Constitutional General appearance: Present: no acute distress - Respiratory Respiratory exam: Present: decreased breath sounds, CTAB Additional comments: + upper airway secretions - Cardiovascular Cardiovascular exam: Present: +S1, +S2 - GI/Abdominal GI/Abdominal exam: Present: normal bowel sounds, soft Additional comments: Dressing to abd D/I. - Extremities Exam Extremities exam: Present: normal capillary refill, normal inspection - Neurological Exam Additional comments: Unresponsive to verbal and tactile stimuli - Skin Additional comments: Jaundiced. Palliative Quality Palliative Quality: Screen for Code Status: Yes, Screen for Goals of Care: No, Screen for Pain: Yes, If Pain Regimen Started, Initiate Bowel Regimen: Yes, Screen for Nausea/Vomitting: Yes Code Status: 11/26/18 10:39 Resuscitation Status: Active [RES] Routine Comment: Resuscitation Status: DNR-Comfort Care
--- NOTE | 2018-11-27 15:56 | Death Note ---
Discharge Sum: Summary - Date and Time Date of admission: 11/26/18 14:38 Date of : 11/27/18 Time of : 15:47 - Summary Details: Patient was admitted to general inpatient hospice for symptom management of his pain, restlessness associated with end of life care. Had history of metastatic colon cancer, originally having surgery that eviscerated with complications. He was preparing to go home with hospice when his condition suddenly deteriorated. He became unresponsive with shallow breathing. He peacefully with family at bedside on 11/27/2018 at 1547 pm - Additional Data Confirmation of as documented by pronouncing clinician: no pulse, no respirations, no heart sounds Family: at bedside Attending physician: Herson Velazco MD Was code activated?: No Hospice patient?: Yes Discharge Sum: Diag - PCOD Probable Cause of : Respiratory arrest Discharge Sum: Prov - Provider Primary care physician: PCP NONE Admitting clinician: Ledy Short Consults: 11/26/18 10:39 Consult to Palliative Care [CONS] Routine Comment: Consulting Provider: Palliative Care [facility] Reason for Consult: Symptom management Time Notified: 10:45 Call Completed: Yes
== END 2018-11-27 15:47 | disposition expired | DRG 951 ==
LOC: 2ANU 14:38
PROVIDERS: ADMIT Internal Medicine; ATTEND Internal Medicine